=== PATIENT | female | born 1955 | race Caucasian/White ===

== ENCOUNTER 2021-11-11 03:21 | Observation (INO) | payer MEDICARE ==
[~2021-11-11] VITALS: Ht 165.1 cm; Wt 68.0 kg
[2021-11-11 05:12] LABS: BASOPHILS ABSOLUTE AUTO 0.06 K/mm3 (0.00-0.23); BASOPHILS PERCENT AUTO 1 % (0-2); EOSINOPHILS ABSOLUTE AUTO 0.26 K/mm3 (0.00-0.68); EOSINOPHILS PERCENT AUTO 4 % (0-6); Hematocrit 34.5 % (33.0-51.0); Hemoglobin 10.8 g/dL (11.5-16.0); IMMATURE GRAN ABSOLUTE AUTO 0.02 K/mm3 (0.00-0.10); IMMATURE GRAN PERCENT AUTO 0 % (0-1); LYMPHOCYTES ABSOLUTE AUTO 1.14 K/mm3 (0.84-5.20); LYMPHOCYTES PERCENT AUTO 16 % (21-46); MONOCYTES PERCENT AUTO 8 % (4-13); Mean Corpuscular HGB 27.6 pg (26.0-34.0); Mean Corpuscular HGB Conc 31.3 g/dL (31.5-36.5); Mean Corpuscular Volume 88 fL (80-100); Mean Platelet Volume 9.8 fL (9.1-12.4); NEUTROPHILS ABSOLUTE AUTO 5.14 K/mm3 (1.96-9.15); NEUTROPHILS PERCENT AUTO 71 % (41-73); Platelet Count 256 K/mm3 (150-400); RDW Standard Deviation 51.5 fL (35.1-46.3); Red Blood Cell Count 3.92 M/mm3 (3.80-5.20); White Blood Cell Count 7.22 K/mm3 (4.00-11.30)
[2021-11-11 05:53] LABS: Alanine Aminotransfer (ALT/SGP 59 U/L (12-78); Albumin, Blood 3.5 g/dL (3.4-5.0); Alk Phos 101 U/L (50-136); Anion Gap 7 mmol/L (6-16); Aspartate Aminotrans (AST/SGOT 64 U/L (12-37); Bilirubin, Total 0.9 mg/dL (0.1-1.0); Blood Urea Nitrogen 11 mg/dL (8-24); Bun/Creatinine Ratio 14.2 (12.0-20.0); CO2, Blood 26 mmol/L (21-32); Chloride, Blood 107 mmol/L (98-108); Creatinine, Blood 0.78 mg/dL (0.40-1.00); Globulin, Blood 3.6 g/dL (2.2-4.0); Glomerular Filtration Rate >60 (60-); Glucose, Blood 107 mg/dL (70-99); Potassium, Blood 4.1 mmol/L (3.5-5.5); Sodium, Blood 140 mmol/L (136-145); Total Protein, Blood 7.1 g/dL (6.4-8.2); Troponin I <0.015 ng/mL (0.000-0.040)
[2021-11-11 06:27] LABS: Influenza A, PCR NEGATIVE (NEGATIVE); Influenza B, PCR NEGATIVE (NEGATIVE); Resp Syncytial Virus, PCR NEGATIVE (NEGATIVE); SARS-Cov-2 (COVID-19) PCR, MMC NEGATIVE (NEGATIVE)
[2021-11-11 06:54] LABS: Percent Saturation 10.6 % (15.0-50.0)
[2021-11-11] MEDS ORDERED: Diovan320 MG PO (08:06)
[2021-11-11] MEDS ORDERED: Aspir 8181 MG PO (08:07)
[2021-11-11] MEDS ORDERED: CLOP75 PO (08:07)
[2021-11-11] MEDS ORDERED: ATOR40TA PO (08:07)
[2021-11-11] MEDS ORDERED: DULOXETINE HCL40 M1 PO (08:07)
[2021-11-11] MEDS ORDERED: GABA100 PO (08:08)
[2021-11-11] MEDS ORDERED: FURO20 PO (09:16)
[2021-11-11] MEDS ORDERED: PROBIOTIC1 EA13 PO (09:17)
[2021-11-11] MEDS ORDERED: POTCHL20ER PO (09:18)
--- NOTE | 2021-11-11 10:26 | NUR ---
DISCHARGE PT PROVIDED DC INSTRUCTIONS AND EDUCATED ON MEDICATION CHANGES. ALL QUESTIONS ANSWERED. PT TAKEN TO ER LOBBY TO AWAIT CAB.
== END 2021-11-11 10:31 | disposition home or self-care (01) ==
LOC: ER 03:21 → ERHOLD 03:22 → PCU 03:22 → ER 06:28 → PCU 06:28 → ERHOLD 06:28 → PCU 07:58
PROVIDERS: Student in an Organized Health Care Education/Training Program; ADMIT Family Medicine
DX: I11.0 Hypertensive heart disease with heart failure (principal); I50.9 Heart failure, unspecified; J96.01 Acute respiratory failure with hypoxia; D64.9 Anemia, unspecified; B96.89 Other specified bacterial agents as the cause of diseases classified elsewhere; I25.10 Atherosclerotic heart disease of native coronary artery without angina pectoris; I25.2 Old myocardial infarction; Z95.5 Presence of coronary angioplasty implant and graft; Z87.891 Personal history of nicotine dependence
CPT/HCPCS: 0241U; 71045; 80053; 82607; 82728; 82746; 83540; 83550; 83880; 84484; 85025; 93005; 93010; 93306; A9270; G0378; J0360; J1940; J2405